=== PATIENT | female | born 1985 | race Asian ===

== ENCOUNTER 2018-06-19 10:58 | Emergency (ER) | END 2018-06-19 12:44 | disposition home or self-care (01) ==

== ENCOUNTER 2018-12-17 16:54 | Emergency (ER) | payer SELFPAY ==
[~2018-12-17] VITALS: Ht 152.4 cm; Wt 51.4 kg
[~2018-12-17 16:54] MED LIST: BECL10.6 IH; D-ME118S24 PO; IBUP-1542 PO; IBUP-1561 PO; NAPR-688 PO; SULF1TAB7 PO
[2018-12-17 17:13] VITALS: Ht 152.4 cm; Wt 51.4 kg
--- NOTE | 2018-12-17 18:30 | ERD ---
ER Documentation Chief Complaint Chief Complaint blood in stool today HPI The patient is a 33-year-old female, presenting to the ER because she had a bloody stool today, denies constipation, diarrhea, similar symptoms previously, denies syncope, near syncope, weakness, neck pain, chest pain, dyspnea, abdominal pain, vomiting. She does not smoke nor drink Past medical/surgical history: None ROS All systems reviewed and are negative except as per history of present illness. Medications Home Meds Active Scripts Ibuprofen* (Motrin*) 400 Mg Tab, 400 MG PO Q6H PRN for PAIN AND OR ELEVATED TEMP, #30 TAB Prov:ESTEFANI KENNY DO 06/19/18 D-Methorphan Hb/P-Epd HCl/Bpm (Fpphkzobev-Gjzxqrcoeqh-Bj Syr) 118 Ml Syrup, 5 ML PO Q4H PRN for COUGH, #1 BOTTLE Prov:ESTEFANI KENNY DO 06/19/18 Beclomethasone Dipropionate (Qvar Redihaler (40 MCG)) 10.6 Gm Hfa.aeroba, 10.6 GM IH BID for cough, #1 INHALER Prov:ESTEFANI KENNY DO 06/19/18 Ibuprofen* (Motrin*) 600 Mg Tab, 600 MG PO Q6, #30 TAB Prov:WENDY DALAL 12/11/15 Reported Medications Naproxen* (Naproxen*) 500 Mg Tablet, 500 MG PO BID 12/05/13 Sulfamethoxazole-Trimethoprim* (Bactrim* DS) 1 Tab Tab, 1 TAB PO BID, TAB 12/05/13 Allergies Allergies: Coded Allergies: No Known Allergy (Verified , 10/19/14) NKA PER LABOR AND DELIVERY ORDER 04/03/11 Uncoded Allergies: NKDA (Allergy, Unknown, 07/04/14) PMhx/Soc History of Surgery: No Anesthesia Reaction: No Hx Neurological Disorder: No Hx Respiratory Disorders: No Hx Cardiac Disorders: Yes (high cholesterol) Hx Psychiatric Problems: No Hx Miscellaneous Medical Probl: Yes Physical Exam Vitals Vital Signs Date Temp Pulse Resp B/P (MAP) Pulse Ox O2 O2 Flow FiO2 Time Delivery Rate 12/17/18 98.8 70 18 118/71 99 17:13 (87) Physical Exam Const: No acute distress. Head: Atraumatic. Eyes: Normal Conjunctiva. ENT: Normal External Ears, Nose and Mouth. Neck: Full range of motion. No meningismus. Resp: Clear to auscultation bilaterally. Cardio: Regular rate and rhythm. Abd: Soft, non distended, normal bowel sounds, non tender. Skin: No petechiae or rashes. Back: No midline or flank tenderness. Ext: No cyanosis, or edema. Neur: Awake and alert. No focal deficit Psych: Normal Mood and Affect. Rectal: No external hemorrhoids, good sphincter tone, no gross blood Result Diagram: 12/17/181856 Results 24 hrs Laboratory Tests Test 12/17/18 18:53 12/17/18 18:54 12/17/18 18:57 POC Beta HCG, Qualitative NEGATIVE Bedside Urine pH (LAB) 6.5 Bedside Urine Protein (LAB) Negative Bedside Urine Glucose (UA) Negative Bedside Urine Ketones (LAB) Negative Bedside Urine Blood Negative Bedside Urine Nitrite (LAB) Negative Bedside Urine Leukocyte Esterase Negative (L White Blood Count 7.2 10^3/ul Red Blood Count 4.10 10^6/ul Hemoglobin 12.4 g/dl Hematocrit 37.2 % Mean Corpuscular Volume 90.7 fl Mean Corpuscular Hemoglobin 30.2 pg Mean Corpuscular 33.3 g/dl Hemoglobin Concent Red Cell Distribution Width 12.7 % Platelet Count 187 10^3/UL Mean Platelet Volume 10.5 fl Immature Granulocytes % 0.100 % Neutrophils % 58.9 % Lymphocytes % 32.0 % Monocytes % 7.0 % Eosinophils % 1.4 % Basophils % 0.6 % Nucleated Red Blood Cells % 0.0 /100WBC Immature Granulocytes # 0.010 10^3/ul Neutrophils # 4.2 10^3/ul Lymphocytes # 2.3 10^3/ul Monocytes # 0.5 10^3/ul Eosinophils # 0.1 10^3/ul Basophils # 0.0 10^3/ul Nucleated Red Blood Cells # 0.0 10^3/ul Procedures/MDM MEDICAL MAKING DECISION: Patient is a 33-year-old female, presenting with acute hematochezia of unclear etiology, stable for outpatient follow-up The differential diagnoses considered include but are not limited to rectal fissure, stretched sphincter, internal hemorrhoids Departure Diagnosis: Primary Impression: Occult blood in stools Condition: Good Comments She was discharged with Anusol HC I discussed the findings with the patient. I advised the patient to follow-up with the primary physician in about 1-2 days, sooner if needed and return if any concern. Disclaimer: Inadvertent spelling and grammatical errors are likely due to EHR/dictation software use and do not reflect on the overall quality of patient care. Also, please note that the electronic time recorded on this note does not necessarily reflect the actual time of the patient encounter. ESTEFANI BROCK MD Dec 17, 2018 18:30
[2018-12-17 19:37] VITALS: BP 103/68; PULSE 65; RESP 18
== END 2018-12-17 19:37 | disposition home or self-care (01) ==
LOC: E/R 16:54
DX: R19.5 Other fecal abnormalities (principal)
CPT/HCPCS: 80048; 81003; 81025; 85025; 99284

== ENCOUNTER 2018-12-28 19:52 | Emergency (ER) | payer MEDICAID ==
[~2018-12-28] VITALS: Ht 152.4 cm; Wt 50.2 kg
[2018-12-28 19:54] VITALS: BP 132/60; PULSE 69; RESP 18; Ht 152.4 cm; Wt 50.2 kg
[2018-12-28] MEDS ORDERED: KETOROLAC 30 MG INJ IM STA (22:00)
[2018-12-28] MEDS ORDERED: NAPR-985 PO (22:01)
[2018-12-28] MEDS ORDERED: CYCL10TA7 PO (22:01)
--- NOTE | 2018-12-28 22:10 | ERD ---
ER Documentation Chief Complaint Chief Complaint NECK/ UPPER BACK PAIN X'S 2 DAYS; DENIES TRAUMA/ STRAINING HPI This is a 33-year-old female patient presents emergency room with complaint of upper back and neck pain starting 2 days ago. 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 No fevers, no nausea vomiting dizziness, no headache, no photophobia. No chronic medical conditions. LMP 2 weeks ago. ROS All systems reviewed and are negative except as per history of present illness. Medications Home Meds Active Scripts Cyclobenzaprine Hcl* (Cyclobenzaprine Hcl*) 10 Mg Tablet, 10 MG PO TID for 3 Days, #15 TAB Prov:JASMINA OLIVEIRA NP 12/28/18 Naproxen* (Naprosyn*) 500 Mg Tablet, 500 MG PO BID PRN for PAIN AND/OR INFLAMMATION for 10 Days, #30 TAB Prov:JASMINA OLIVEIRA NP 12/28/18 Ibuprofen* (Motrin*) 400 Mg Tab, 400 MG PO Q6H PRN for PAIN AND OR ELEVATED TEMP, #30 TAB Prov:ESTEFANI KENNY DO 06/19/18 D-Methorphan Hb/P-Epd HCl/Bpm (Rriglyatfs-Kvdrvbypdxi-Lr Syr) 118 Ml Syrup, 5 ML PO Q4H PRN for COUGH, #1 BOTTLE Prov:ESTEFANI KENNY DO 06/19/18 Beclomethasone Dipropionate (Qvar Redihaler (40 MCG)) 10.6 Gm Hfa.aeroba, 10.6 GM IH BID for cough, #1 INHALER Prov:ESTEFANI KENNY DO 06/19/18 Ibuprofen* (Motrin*) 600 Mg Tab, 600 MG PO Q6, #30 TAB Prov:WENDY DLAAL 12/11/15 Reported Medications Naproxen* (Naproxen*) 500 Mg Tablet, 500 MG PO BID 12/05/13 Sulfamethoxazole-Trimethoprim* (Bactrim* DS) 1 Tab Tab, 1 TAB PO BID, TAB 12/05/13 Allergies Allergies: Coded Allergies: No Known Allergy (Verified , 10/19/14) NKA PER LABOR AND DELIVERY ORDER 04/03/11 Uncoded Allergies: NKDA (Allergy, Unknown, 07/04/14) PMhx/Soc Medical and Surgical Hx: pt denies Medical Hx, pt denies Surgical Hx History of Surgery: No Anesthesia Reaction: No Hx Neurological Disorder: No Hx Respiratory Disorders: No Hx Cardiac Disorders: No Hx Psychiatric Problems: No Hx Miscellaneous Medical Probl: No Hx Alcohol Use: No (denies) Hx Substance Use: No (denies) Hx Tobacco Use: No (denies) Smoking Status: Never smoker FmHx Family History: No diabetes, No coronary disease, No other Physical Exam Vitals Vital Signs Date Temp Pulse Resp B/P (MAP) Pulse Ox O2 O2 Flow FiO2 Time Delivery Rate 12/28/18 97.6 69 18 132/60 100 19:54 (84) Physical Exam Const: No acute distress Head: Atraumatic Eyes: Normal Conjunctiva, PERRL, EOMI ENT: Normal External Ears, Nose and Mouth. Neck: Ltd ROM due to pain, no swelling, no bruising, point tenderness over right upper trapezius Resp: Clear to auscultation bilaterally Cardio: Regular rate and rhythm, no murmurs Abd: Soft, non tender, non distended. Normal bowel sounds Skin: No petechiae or rashes Back: No midline or flank tenderness, no spinal tenderness Ext: No cyanosis, or edema. FROM, 5/5 strength, sensation intact Neur: Awake and alert, clear speech, steady gait, CN II-XII intact Psych: Normal Mood and Affect Results 24 hrs Current Medications Medications Dose Sig/Estuardo Start Time Status Last (Trade) Ordered Route PRN Stop Time Admin Dose Reason Admin Ketorolac 30 mg ONCE STAT 12/28/18 DC Tromethamine IM 22:00 12/28/18 (Toradol) 22:01 Procedures/MDM PROCEDURES/MDM -Medications: Toradol Patient tolerated medication well with no adverse reactions. Patient reported improvement in pain. MDM: This is a 33-year-old female patient presents emergency room with complaint of upper neck and back pain. 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 There is low suscpicion for CVA, atypical angina, epidural abscess, peripheral nerve entrapment, cervical spinal cord compression, rotator cuff tear, spinal fracture, disc rupture, herniation, neoplasm. It is understood by patient that more testing may be necessary from orthopedist or neurologist to evaluate for other etiology such as multiple sclerosis or other degenerative disease. Patient has been instructed on use of heat, NSAIDs, Flexeril, stretching DISPOSITION and PLAN: RX: Flexeril, Naprosyn The patient has been discharge home to follow-up with community physician. Departure Diagnosis: Primary Impression: Neck strain Encounter type: initial encounter Qualified Codes: S16.1XXA - Strain of muscle, fascia and tendon at neck level, initial encounter Condition: Stable Patient Instructions: Self-Care for Strains and Sprains Referrals: [facility] YOU HAVE RECEIVED A MEDICAL SCREENING EXAM AND THE RESULTS INDICATE THAT YOU DO NOT HAVE A CONDITION THAT REQUIRES URGENT TREATMENT IN THE EMERGENCY DEPARTMENT. FURTHER EVALUATION AND TREATMENT OF YOUR CONDITION CAN WAIT UNTIL YOU ARE SEEN IN YOUR DOCTORS OFFICE WITHIN THE NEXT 1-2 DAYS. IT IS YOUR RESPONSIBILITY TO MAKE AN APPOINTMENT FOR FOLOW-UP CARE. IF YOU HAVE A PRIMARY DOCTOR --you should call your primary doctor and schedule an appointment IF YOU DO NOT HAVE A PRIMARY DOCTOR YOU CAN CALL OUR PHYSICIAN REFERRAL HOTLINE AT IF YOU CAN NOT AFFORD TO SEE A PHYSICIAN YOU CAN CHOSE FROM THE FOLLOWING [facility] [address] [facility]. [facility] [address] [facility] [facility] [address] [facility] [facility] [address] [facility] [facility] [address] [facility] [facility]. [address] Additional Instructions: Thank you very much for allowing us to participate in your care. Your health and safety is our top priority at [facility]. Call your primary care doctor TOMORROW for an appointment during the next 2-4 days and bring all the information and medications prescribed. Have prescriptions filled and follow precisely the directions on the label. If the symptoms get worse and your provider is unavailable, return to the Emergency Department immediately. USE NAPROSYN TWICE A DAY FOR PAIN USE FLEXERIL NEEDED FOR MUSCLE SPASM, THIS MEDICATION WILL MAKE YOU DROWSY, DO NOT DRIVE, DRINK ALCOHOL, WATCH SMALL CHILDREN WHILE ON THIS MEDICATION USE MOIST HEAT 20 TO 30 MINUTES 2-3 TIMES PER DAY PERFORM STRETCHING EXERCISES 1-2 TIMES PER DAY JASMINA OLIVEIRA NP Dec 28, 2018 22:10
== END 2018-12-28 22:46 | disposition home or self-care (01) ==
LOC: FTE 19:52
DX: S16.1XXA Strain of muscle, fascia and tendon at neck level, initial encounter (principal); X50.9XXA Other and unspecified overexertion or strenuous movements or postures, initial encounter; Y92.89 Other specified places as the place of occurrence of the external cause
CPT/HCPCS: 81025; 96372; J1885; Z7502